=== PATIENT | male | born 1985 | race Caucasian/White ===

== ENCOUNTER 2022-04-24 10:18 | Inpatient (IN) | payer OTHER ==
[~2022-04-24] VITALS: Ht 177.8 cm; Wt 72.7 kg
[2022-04-24] MEDS ORDERED: ONDANSETRON HCL 4 MG/2 ML VIAL IVP ONE (10:45)
[2022-04-24] MEDS ORDERED: SODIUM CHLORIDE 0.9% 1,000 ML IV ONE (10:45)
[2022-04-24 11:22] LABS: COVID AG,FIA SOURCE NASAL SWAB
[2022-04-24 11:23] LABS: BASOPHILS % (AUTO) 0.6 % (0.0-2.0); EOSINOPHILS % (AUTO) 1.1 % (1.0-6.0); HEMATOCRIT 42.4 % (41-53); LYMPHOCYTES # (AUTO) 0.8 K/uL (1.0-4.8); LYMPHOCYTES % (AUTO) 10.2 % (22.0-44.0); MEAN CORPUSCULAR HEMOGLOBIN 26.6 pg (26.0-34.0); MEAN CORPUSCULAR HGB CONC 32.9 G/dL (31.0-37.0); MEAN CORPUSCULAR VOLUME 81 fL (80-100); MONOCYTES # (AUTO) 0.4 K/uL (0.1-1.0); MONOCYTES % (AUTO) 4.5 % (2.0-9.0); NEUTROPHILS # (AUTO) 6.6 K/uL (1.8-7.7); NEUTROPHILS % (AUTO) 83.6 % (40.0-70.0); RED BLOOD CELL COUNT(AUTO) 5.25 MIL/uL (4.50-5.90); RED CELL DISTRIBUTION WIDTH 14.8 % (11.5-14.5)
[2022-04-24 11:34] LABS: ANION GAP 11 mmol/L (8-16); CALCIUM, TOTAL 9.1 mg/dL (8.8-10.5); CARBON DIOXIDE 25 mmol/L (22-29); CHLORIDE 104 mmol/L (98-107); CREATININE 0.79 mg/dL (0.60-1.30); GLOMERULAR FILTR. RATE CALC > 60 mL/min (>60); GLUCOSE,RANDOM 98 mg/dL (70-110); POTASSIUM 4.3 mmol/L (3.5-5.1); SODIUM SERUM 140 mmol/L (136-145); UREA NITROGEN, BLOOD 12 mg/dL (7-18)
[2022-04-24 11:39] LABS: ALANINE AMINOTRANSFERASE 13 U/L (12-78); ALBUMIN 3.8 g/dL (3.4-5.0); ALKALINE PHOSPHATASE 62 U/L (46-116); ASPARTATE AMINOTRANSFERASE 18 U/L (15-37); BILIRUBIN,TOTAL 0.3 mg/dL (0.1-1.0); TOTAL PROTEIN, SERUM 7.9 g/dL (6.4-8.2)
[2022-04-24] MEDS ORDERED: 0.9% SODIUM CHLORIDE 10 ML SYRINGE IVP PRN (11:45)
[2022-04-24 12:26] LABS: PLATELET COUNT (AUTO) 204 K/uL (150-450)
[2022-04-24 13:22] LABS: AMPHET/METH SCREEN,URINE POSITIVE (NEGATIVE); BARBITURATE SCREEN, URINE NEGATIVE (NEGATIVE); BENZODIAZEPINES SCREEN,URINE NEGATIVE (NEGATIVE); CANNABINOID SCREEN,URINE NEGATIVE (NEGATIVE); COCAINE SCREEN,URINE NEGATIVE (NEGATIVE); METHADONE SCREEN, URINE NEGATIVE (NEGATIVE); OPIATE SCREEN,URINE POSITIVE (NEGATIVE); PHENCYCLIDINE SCREEN,URINE NEGATIVE (NEGATIVE)
[2022-04-24 13:31] VITALS: BP 134/81
[2022-04-24 16:00] VITALS: BP 118/77
[2022-04-24] MEDS ORDERED: ACETAMINOPHEN 325 MG TABLET PO PRN ×2 (18:45→19:00)
[2022-04-24] MEDS ORDERED: ONDANSETRON HCL 4 MG/2 ML VIAL IVP PRN (19:00)
[2022-04-24] MEDS ORDERED: HydrOXYzine PAMOATE 50 MG CAPSULE PO PRN (19:00)
[2022-04-24] MEDS ORDERED: IBUPROFEN 600 MG TABLET PO PRN (19:00)
[2022-04-24] MEDS ORDERED: CloNIDine HCL 0.1 MG TABLET PO PRN (19:00)
[2022-04-24] MEDS ORDERED: ALBUTEROL SULFATE 2.5 MG/0.5 ML NEB SOLUTION NEB PRN (19:00)
[2022-04-24] MEDS ORDERED: BISACODYL 10 MG RECTAL RECTAL SUPPOSITORY PR PRN (19:00)
[2022-04-24] MEDS ORDERED: LORazepam 2 MG TABLET PO PRN (19:00)
[2022-04-24] MEDS ORDERED: IPRATROPIUM BROMIDE 0.5 MG/2.5 ML NEB SOLUTION NEB PRN (19:00)
[2022-04-24] MEDS ORDERED: ZOLPIDEM TARTRATE 5 MG TABLET PO PRN (19:00)
[2022-04-24] MEDS ORDERED: MAG HYDROX/AL HYDROX/SIMETH ES 30 ML SUSPENSION UDCUP PO PRN (19:00)
[2022-04-24] MEDS ORDERED: MAGNESIUM HYDROXIDE SUSPENSION 30 ML UDCUP PO PRN (19:00)
[2022-04-24] MEDS ORDERED: ChlordiazePOXIDE HCL 25 MG CAPSULE PO SCH (20:00)
[2022-04-24 20:05] VITALS: BP 105/64
[2022-04-24] MEDS: DOCUSATE SODIUM 100 MG CAPSULE PO SCH (20:12)
[2022-04-24] MEDS: 1: MAGNESIUM SULFATE 2 GM, MVI, ADULT NO.1 WITH VIT K 10 ML, THIAMINE 100 MG, FOLIC ACID IV SCH ×5 (20:12)
[2022-04-24] MEDS: CloNIDine HCL 0.1 MG TABLET PO SCH (21:56)
[2022-04-24] MEDS: HEPARIN SODIUM,PORCINE 5,000 UNITS/ML VIAL SQ SCH (23:20)
[2022-04-24 23:50] VITALS: BP 101/62
[2022-04-25 04:37] VITALS: BP 101/69
[2022-04-25] MEDS: CloNIDine HCL 0.1 MG TABLET PO SCH ×4 (05:53→21:17)
[2022-04-25] MEDS ORDERED: LORazepam 2 MG TABLET PO PRN (07:00)
[2022-04-25 08:00] VITALS: BP 111/66
[2022-04-25] MEDS ORDERED: SODIUM CHLORIDE 0.9% 1,000 ML ONE (08:09)
[2022-04-25] MEDS: 1: MAGNESIUM SULFATE 2 GM, MVI, ADULT NO.1 WITH VIT K 10 ML, THIAMINE 100 MG, FOLIC ACID IV SCH ×10 (08:14→23:00)
[2022-04-25] MEDS: LORazepam 2 MG TABLET PO SCH ×4 (08:15→21:30)
[2022-04-25] MEDS: PANTOPRAZOLE SODIUM 40 MG/VIAL IVP SCH (08:15)
[2022-04-25] MEDS: DOCUSATE SODIUM 100 MG CAPSULE PO SCH ×3 (08:15→21:00)
[2022-04-25] MEDS: HEPARIN SODIUM,PORCINE 5,000 UNITS/ML VIAL SQ SCH ×3 (08:15→23:53)
[2022-04-25 11:47] VITALS: BP 111/58
[2022-04-25 16:19] VITALS: BP 111/64
[2022-04-25 19:45] VITALS: BP 115/64
[2022-04-26] VITALS: BP 120/84
[2022-04-26 04:26] VITALS: BP 121/67
[2022-04-26] MEDS: CloNIDine HCL 0.1 MG TABLET PO SCH ×4 (05:06→21:11)
[2022-04-26 07:09] VITALS: BP 110/67
[2022-04-26] MEDS: PANTOPRAZOLE SODIUM 40 MG/VIAL IVP SCH (08:13)
[2022-04-26] MEDS: LORazepam 2 MG TABLET PO SCH (08:13)
[2022-04-26] MEDS: DOCUSATE SODIUM 100 MG CAPSULE PO SCH ×2 (08:13→21:00)
[2022-04-26] MEDS: HEPARIN SODIUM,PORCINE 5,000 UNITS/ML VIAL SQ SCH ×3 (08:13→23:31)
[2022-04-26] MEDS ORDERED: SODIUM CHLORIDE 0.9% 1,000 ML ONE (11:33)
[2022-04-26] MEDS: 1: MAGNESIUM SULFATE 2 GM, MVI, ADULT NO.1 WITH VIT K 10 ML, THIAMINE 100 MG, FOLIC ACID IV SCH ×5 (11:54)
[2022-04-26 11:57] VITALS: BP 121/78
[2022-04-26] MEDS ORDERED: LORazepam 1 MG TABLET PO SCH (13:00)
[2022-04-26 15:41] VITALS: BP 123/68
[2022-04-26 21:11] VITALS: BP 139/90
[2022-04-27] VITALS (8 sets, daily range): BP systolic 114–144; BP diastolic 68–94
[2022-04-27] MEDS: 1: MAGNESIUM SULFATE 2 GM, MVI, ADULT NO.1 WITH VIT K 10 ML, THIAMINE 100 MG, FOLIC ACID IV SCH ×10 (01:06→16:00)
[2022-04-27] MEDS: CloNIDine HCL 0.1 MG TABLET PO SCH ×4 (05:54→21:34)
[2022-04-27] MEDS ORDERED: LORazepam 1 MG TABLET PO PRN ×2 (07:00→13:00)
[2022-04-27] MEDS: PANTOPRAZOLE SODIUM 40 MG/VIAL IVP SCH (07:45)
[2022-04-27] MEDS: DOCUSATE SODIUM 100 MG CAPSULE PO SCH (07:45)
[2022-04-27] MEDS: HEPARIN SODIUM,PORCINE 5,000 UNITS/ML VIAL SQ SCH ×3 (07:50→23:17)
[2022-04-27] MEDS ORDERED: LORazepam 1 MG TABLET PO SCH (09:00)
[2022-04-27] MEDS: LORazepam 1 MG TABLET PO SCH ×3 (13:12→21:33)
[2022-04-27] MEDS ORDERED: SODIUM CHLORIDE 0.9% 1,000 ML ONE (15:56)
[2022-04-27 19:41] LABS: BASOPHILS % (AUTO) 0.7 % (0.0-2.0); EOSINOPHILS % (AUTO) 0.2 % (1.0-6.0); HEMATOCRIT 36.9 % (41-53); HEMOGLOBIN 12.3 g/dL (13.5-17.5); LYMPHOCYTES # (AUTO) 1.1 K/uL (1.0-4.8); LYMPHOCYTES % (AUTO) 11.6 % (22.0-44.0); MEAN CORPUSCULAR HEMOGLOBIN 26.7 pg (26.0-34.0); MEAN CORPUSCULAR HGB CONC 33.3 G/dL (31.0-37.0); MEAN CORPUSCULAR VOLUME 80 fL (80-100); MONOCYTES # (AUTO) 1.1 K/uL (0.1-1.0); MONOCYTES % (AUTO) 11.4 % (2.0-9.0); NEUTROPHILS # (AUTO) 7.5 K/uL (1.8-7.7); NEUTROPHILS % (AUTO) 76.1 % (40.0-70.0); PLATELET COUNT (AUTO) 227 K/uL (150-450); RED BLOOD CELL COUNT(AUTO) 4.62 MIL/uL (4.50-5.90); RED CELL DISTRIBUTION WIDTH 14.4 % (11.5-14.5)
[2022-04-27 19:49] LABS: ANION GAP 7 mmol/L (8-16); CALCIUM, TOTAL 8.4 mg/dL (8.8-10.5); CARBON DIOXIDE 28 mmol/L (22-29); CHLORIDE 105 mmol/L (98-107); CREATININE 0.78 mg/dL (0.60-1.30); GLOMERULAR FILTR. RATE CALC > 60 mL/min (>60); GLUCOSE,RANDOM 94 mg/dL (70-110); POTASSIUM 4.1 mmol/L (3.5-5.1); SODIUM SERUM 140 mmol/L (136-145); UREA NITROGEN, BLOOD 14 mg/dL (7-18)
[2022-04-27 19:55] LABS: ALANINE AMINOTRANSFERASE 18 U/L (12-78); ALBUMIN 3.2 g/dL (3.4-5.0); ALKALINE PHOSPHATASE 58 U/L (46-116); ASPARTATE AMINOTRANSFERASE 17 U/L (15-37); BILIRUBIN,TOTAL 0.3 mg/dL (0.1-1.0); TOTAL PROTEIN, SERUM 6.8 g/dL (6.4-8.2)
[2022-04-28] MEDS: 1: MAGNESIUM SULFATE 2 GM, MVI, ADULT NO.1 WITH VIT K 10 ML, THIAMINE 100 MG, FOLIC ACID IV SCH ×10 (04:18→17:10)
[2022-04-28 04:22] VITALS: BP 108/61
[2022-04-28] MEDS: CloNIDine HCL 0.1 MG TABLET PO SCH ×4 (05:05→21:57)
[2022-04-28] MEDS ORDERED: LORazepam 1 MG TABLET PO PRN ×2 (07:00)
[2022-04-28 07:29] VITALS: BP 108/61
[2022-04-28] MEDS: HEPARIN SODIUM,PORCINE 5,000 UNITS/ML VIAL SQ SCH ×3 (07:48→23:22)
[2022-04-28] MEDS: PANTOPRAZOLE SODIUM 40 MG/VIAL IVP SCH (07:48)
[2022-04-28 11:30] VITALS: BP 126/77
[2022-04-28 15:58] VITALS: BP 106/67
[2022-04-28] MEDS ORDERED: SODIUM CHLORIDE 0.9% 1,000 ML ONE (17:07)
[2022-04-28 17:11] VITALS: BP 123/71
[2022-04-28 20:14] VITALS: BP 121/67
[2022-04-29 05:30] VITALS: BP 109/61
[2022-04-29] MEDS: CloNIDine HCL 0.1 MG TABLET PO SCH ×2 (06:00→12:00)
[2022-04-29] MEDS: 1: MAGNESIUM SULFATE 2 GM, MVI, ADULT NO.1 WITH VIT K 10 ML, THIAMINE 100 MG, FOLIC ACID IV SCH ×5 (06:07)
[2022-04-29] MEDS: PANTOPRAZOLE SODIUM 40 MG/VIAL IVP SCH (08:14)
[2022-04-29] MEDS: HEPARIN SODIUM,PORCINE 5,000 UNITS/ML VIAL SQ SCH (08:15)
[2022-04-29 08:24] VITALS: BP 115/66
== END 2022-04-29 16:45 | DRG 897 ==
LOC: EMS 10:23 → 6S 12:41
PROVIDERS: ADMIT Hospitalist; ATTEND Hospitalist
DX: F11.23 Opioid dependence with withdrawal (principal); Z20.822 Contact with and (suspected) exposure to COVID-19; F10.239 Alcohol dependence with withdrawal, unspecified; Z87.891 Personal history of nicotine dependence; Z79.899 Other long term (current) drug therapy
CPT/HCPCS: 71045; 80053; 85025; 93306; 99285; C9113; G0238; G0480; J1644; J2405; J3411; J3475; J3490; J7030; 36415-L1; 36415-TC